=== PATIENT | male | born 1940 | race African-American/Black ===

== ENCOUNTER 2025-02-18 17:43 | Emergency (ER) | payer MEDICAID, OTHER ==
[~2025-02-18] VITALS: Ht 175.3 cm; Wt 61.0 kg
[2025-02-18 17:47] VITALS: O2SAT 94
[2025-02-18 17:54] VITALS: BP 115/59; PULSE 67; RESP 18; TEMP 36.7; O2SAT 98
[2025-02-18] MEDS ORDERED: AMOX1TAB16 MT (20:44)
[2025-03-17] MEDS ORDERED: OMEP40CA20 PO (05:12)
[2025-03-17] MEDS ORDERED: OCUFLX (05:12)
== END 2025-02-18 20:58 | disposition home or self-care (01) ==
LOC: ER 17:43
DX: J90 Pleural effusion, not elsewhere classified (principal); I10 Essential (primary) hypertension; I48.91 Unspecified atrial fibrillation; Z90.89 Acquired absence of other organs; K21.9 Gastro-esophageal reflux disease without esophagitis; Z88.5 Allergy status to narcotic agent
CPT/HCPCS: 71045; 93005; 99283